=== PATIENT | female | born 2005 | race African-American/Black ===

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

== ENCOUNTER 2024-06-16 13:53 | Emergency (ER) | payer SELFPAY ==
[2024-06-16] MEDS: Ondansetron 4 MG Tab.DIS PO ONE (14:30)
[2024-06-16 14:45] LABS: APPEARANCE,URINE CLEAR; BILIRUBIN,URINE NEGATIVE (NEGATIVE); COLOR,URINE YELLOW; GLUCOSE,URINE NEGATIVE (NEGATIVE); KETONES,URINE NEGATIVE (NEGATIVE); LEUKOCYTE ESTERASE,URINE NEGATIVE (NEGATIVE); NITRITE,URINE NEGATIVE (NEGATIVE); OCCULT BLOOD,URINE NEGATIVE (NEGATIVE); PROTEIN,URINE NEGATIVE (NEGATIVE); UROBILINOGEN,URINE 0.2 EU/dL (<2.0)
[2024-06-16 14:46] LABS: BASOPHILS ABSOLUTE AUTO 0.02 K/uL (0.00-0.30); BASOPHILS PERCENT AUTO 0.3 % (0.0-1.0); EOSINOPHILS ABSOLUTE AUTO 0.07 K/uL (0.00-0.70); EOSINOPHILS PERCENT AUTO 1.2 % (0.0-5.0); HEMATOCRIT 40.8 % (37.0-47.0); HEMOGLOBIN 13.3 g/dL (12.0-16.0); IMMATURE GRAN ABSOLUTE AUTO 0.01 K/uL (0.00-0.05); IMMATURE GRAN PERCENT AUTO 0.2 % (0.0-0.4); LYMPHOCYTES ABSOLUTE AUTO 2.51 K/uL (2.00-8.80); MEAN CORPUSCULAR HEMOGLOBIN 28.3 pg (28.0-32.0); MEAN CORPUSCULAR HGB CONC 32.6 g/dL (32.0-36.0); MEAN CORPUSCULAR VOLUME 86.8 fL (83.0-99.0); MEAN PLATELET VOLUME 9.3 fL (9.4-12.3); MONOCYTES ABSOLUTE AUTO 0.59 K/uL (0.10-1.40); MONOCYTES PERCENT AUTO 9.9 % (2.0-10.0); NEUTROPHILS ABSOLUTE AUTO 2.78 K/uL (1.50-8.50); NEUTROPHILS PERCENT AUTO 46.4 % (35.0-45.0); PLATELET COUNT,PLT 316 K/uL (150-400); WHITE BLOOD CELL COUNT,WBC 5.98 K/uL (4.5-13.5)
[2024-06-16 14:57] LABS: A/G RATIO 1.1 (0.9-1.6); ALBUMIN 3.8 g/dL (3.4-5.0); BILIRUBIN TOTAL 0.1 mg/dL (0.2-1.0); CALCIUM 9.1 mg/dL (8.5-10.1); CARBON DIOXIDE,CO2 27.8 mmol/L (21.0-32.0); CREATININE 0.9 mg/dL (0.6-1.0); EST CRCL DRUG DOSING (CG) 90.47 mL/min; POTASSIUM,K 3.9 mmol/L (3.5-5.1); PROTEIN TOTAL,TP 7.4 g/dL (6.4-8.2)
[2024-06-16 15:42] LABS: CANDIDA DNA PROBE POSITIVE (NEGATIVE); GARDNERELLA DNA PROBE NEGATIVE (NEGATIVE); TRICHOMONAS DNA PROBE NEGATIVE (NEGATIVE)
[2024-06-16 16:15] LABS: C. TRACHOMATIS BY PCR NOT DETECTED; N. GONORRHOEAE BY PCR NOT DETECTED
== END 2024-06-16 16:11 | disposition home or self-care (01) ==
LOC: MW.ED 13:53
DX: B37.9 Candidiasis, unspecified (principal); Z75.8 Other problems related to medical facilities and other health care
CPT/HCPCS: 36415; 71045; 80053; 81003; 81025; 83690; 85025; 87428; 87480; 87491; 87510; 87591; 87660; 99284; A9270

== ENCOUNTER 2024-07-12 23:52 | Emergency (ER) | payer BC, MEDICAID ==
[2024-07-12] MEDS ORDERED: Sodium Chloride 0.9% 10 ML Syringe FLUSH PRN (23:58)
[2024-07-13] MEDS: Acetaminophen 500 MG Tab PO ONE (00:14)
[2024-07-13] MEDS: Dexamethasone 4 MG Tab PO ONE (00:15)
[2024-07-13 00:25] LABS: BASOPHILS ABSOLUTE AUTO 0.02 K/uL (0.00-0.20); BASOPHILS PERCENT AUTO 0.3 % (0.0-1.0); EOSINOPHILS ABSOLUTE AUTO 0.12 K/uL (0.00-0.45); EOSINOPHILS PERCENT AUTO 1.8 % (0.0-6.0); HEMATOCRIT 39.1 % (37.0-47.0); HEMOGLOBIN 12.8 g/dL (12.0-16.0); IMMATURE GRAN ABSOLUTE AUTO 0.03 K/uL (0.00-0.05); IMMATURE GRAN PERCENT AUTO 0.4 % (0.0-0.4); LYMPHOCYTES ABSOLUTE AUTO 3.47 K/uL (1.00-4.80); LYMPHOCYTES PERCENT AUTO 50.7 % (24.0-44.0); MEAN CORPUSCULAR HEMOGLOBIN 27.9 pg (28.0-32.0); MEAN CORPUSCULAR HGB CONC 32.7 g/dL (32.0-36.0); MEAN CORPUSCULAR VOLUME 85.4 fL (83.0-99.0); MEAN PLATELET VOLUME 8.9 fL (9.4-12.3); MONOCYTES ABSOLUTE AUTO 0.35 K/uL (0.00-0.80); MONOCYTES PERCENT AUTO 5.1 % (0.0-8.0); NEUTROPHILS ABSOLUTE AUTO 2.86 K/uL (1.80-7.70); NEUTROPHILS PERCENT AUTO 41.7 % (41.0-71.0); PLATELET COUNT,PLT 345 K/uL (150-400); RED BLOOD CELL COUNT 4.58 M/uL (4.10-5.30); WHITE BLOOD CELL COUNT,WBC 6.85 K/uL (3.9-11.3)
[2024-07-13 01:10] LABS: A/G RATIO 1.1 (0.9-1.6); ALANINE AMINOTRANSFERASE,ALT 18 IU/L (14-63); ALBUMIN 3.8 g/dL (3.4-5.0); ALKALINE PHOSPHATASE 92 U/L (46-116); ASPARTATE AMNIOTRANSFERASE,AST 22 IU/L (15-37); BILIRUBIN TOTAL 0.2 mg/dL (0.2-1.0); BLOOD UREA NITROGEN,BUN 6 mg/dL (7.0-18.0); CALCIUM 9.1 mg/dL (8.5-10.1); CARBON DIOXIDE,CO2 29.1 mmol/L (21.0-32.0); CREATININE 0.8 mg/dL (0.6-1.0); EST CRCL DRUG DOSING (CG) 100.94 mL/min; GLUCOSE RANDOM 131 mg/dL (74-106); LIPASE 33 U/L (16-77); PRO B-TYPE NATRIUR PEPT,BNPPRO 67 pg/mL (0-125); PROTEIN TOTAL,TP 7.4 g/dL (6.4-8.2)
[2024-07-13 01:24] LABS: CHLORIDE,CL 104 mmol/L (98-107); POTASSIUM,K 4.3 mmol/L (3.5-5.1); SODIUM,NA 139 mmol/L (136-145)
[2024-07-13 01:25] LABS: ESTIMATED GFR 108 mL/min (>60)
== END 2024-07-13 01:42 | disposition home or self-care (01) ==
LOC: MW.ED 23:52
DX: R09.1 Pleurisy (principal); R05.1 Acute cough; Z79.899 Other long term (current) drug therapy
CPT/HCPCS: 36415; 71045; 80053; 83690; 83880; 84484; 84703; 85025; 87428; 93005; 99284; A9270; J8540; 93010

== ENCOUNTER 2025-01-31 23:26 | Emergency (ER) | payer BC ==
[2025-01-31 23:45] LABS: BASOPHILS ABSOLUTE AUTO 0.02 K/uL (0.00-0.20); BASOPHILS PERCENT AUTO 0.3 % (0.0-1.0); EOSINOPHILS ABSOLUTE AUTO 0.09 K/uL (0.00-0.45); EOSINOPHILS PERCENT AUTO 1.4 % (0.0-6.0); IMMATURE GRAN ABSOLUTE AUTO 0.01 K/uL (0.00-0.05); IMMATURE GRAN PERCENT AUTO 0.2 % (0.0-0.4); LYMPHOCYTES ABSOLUTE AUTO 3.03 K/uL (1.00-4.80); LYMPHOCYTES PERCENT AUTO 48.4 % (24.0-44.0); MEAN PLATELET VOLUME 9.4 fL (9.4-12.3); MONOCYTES ABSOLUTE AUTO 0.60 K/uL (0.00-0.80); MONOCYTES PERCENT AUTO 9.6 % (0.0-8.0); NEUTROPHILS ABSOLUTE AUTO 2.51 K/uL (1.80-7.70); NEUTROPHILS PERCENT AUTO 40.1 % (41.0-71.0); NRBC ABSOLUTE 0.00 K/uL (0.00-0.02); NRBC PERCENT 0.0 /100WBC (0.0-0.2); PLATELET COUNT,PLT 313 K/uL (150-400); RED BLOOD CELL COUNT 4.59 M/uL (4.10-5.30); WHITE BLOOD CELL COUNT,WBC 6.26 K/uL (3.9-11.3)
[2025-02-01 00:09] LABS: A/G RATIO 1.0 (0.9-1.6); ALANINE AMINOTRANSFERASE,ALT 18 IU/L (14-63); ASPARTATE AMNIOTRANSFERASE,AST 16 IU/L (15-37); BILIRUBIN TOTAL 0.2 mg/dL (0.2-1.0); BLOOD UREA NITROGEN,BUN 7 mg/dL (7.0-18.0); CARBON DIOXIDE,CO2 27.1 mmol/L (21.0-32.0); CHLORIDE,CL 103 mmol/L (98-107); CREATININE 0.9 mg/dL (0.6-1.0); EST CRCL DRUG DOSING (CG) 86.10 mL/min; ESTIMATED GFR 94 mL/min (>60); GLUCOSE RANDOM 92 mg/dL (74-106); POTASSIUM,K 4.0 mmol/L (3.5-5.1); PRO B-TYPE NATRIUR PEPT,BNPPRO 11 pg/mL (0-125); PROTEIN TOTAL,TP 7.2 g/dL (6.4-8.2); SODIUM,NA 141 mmol/L (136-145)
[2025-02-01] MEDS: Iopamidol 755 Mg/ML 100 ML Bottle IVPUSH ONE (00:17)
[2025-02-01 00:44] LABS: GLUCOSE,URINE NEGATIVE (NEGATIVE); OCCULT BLOOD,URINE NEGATIVE (NEGATIVE)
[2025-02-01 00:59] LABS: APPEARANCE,URINE HAZY
[2025-02-01 01:09] LABS: EPITHELIAL CELLS,URINE FEW (NONE-FEW)
== END 2025-02-01 01:13 | disposition home or self-care (01) ==
LOC: MW.ED 23:26
DX: R09.1 Pleurisy (principal); R42 Dizziness and giddiness; R11.10 Vomiting, unspecified; R10.9 Unspecified abdominal pain; Z75.3 Unavailability and inaccessibility of health-care facilities
CPT/HCPCS: 36415; 71045; 71275; 74177; 80053; 81001; 83690; 83735; 83880; 84484; 84703; 85025; 93005; 99284; J7030; Q9967; 99283

== ENCOUNTER 2025-05-01 15:47 | Emergency (ER) | payer BC | END 2025-05-01 17:02 | disposition home or self-care (01) | LOC: MW.ED 15:47 | DX: M25.511 Pain in right shoulder (principal) | CPT/HCPCS: 73000; 73030; 73060; 99283; A9270 ==